=== PATIENT | female | born 1990 | race Asian ===

== ENCOUNTER 2016-10-26 01:21 | Emergency (ER) | payer SELFPAY ==
[~2016-10-26] VITALS: Ht 154.9 cm; Wt 52.2 kg
[2016-10-26 01:33] VITALS: BP_SYST 106
[2016-10-26 01:51] LABS: BILIRUBIN,URINE NEGATIVE (NEGATIVE); BLOOD, URINE NEGATIVE (NEGATIVE); CLARITY/URINE CLEAR (CLEAR); COLOR,URINE YELLOW (YELLOW); GLUCOSE,URINE NEGATIVE (NEGATIVE); KETONES,URINE NEGATIVE (NEGATIVE); LEUKOCYTE ESTERASE ,URINE NEGATIVE (NEGATIVE); NITRITE, URINE NEGATIVE (NEGATIVE); PROTEIN URINE NEGATIVE (NEGATIVE); UROBILINOGEN,URINE 0.2 (0.2-1.0)
[2016-10-26] MEDS ORDERED: DIPHENHYDRAMINE INJ 50 MG/ML VIAL IVP ONE ×3 (02:00→04:15)
[2016-10-26] MEDS ORDERED: MORPHINE 4 MG/ML INJ. SYRINGE IVP ONE ×2 (02:00→03:15)
[2016-10-26] MEDS ORDERED: ONDANSETRON HCL 4 MG/2 ML VIAL IVP ONE (02:00)
[2016-10-26 02:15] LABS: BASOPHILS % (AUTO) 0.5 % (0.0-2.0); EOSINOPHILS # (AUTO) 0.4 K/uL (0.0-0.4); EOSINOPHILS % (AUTO) 5.3 % (0.0-4.0); HEMATOCRIT 38.2 % (36-48); LYMPHOCYTES # (AUTO) 2.6 K/uL (1.0-5.5); LYMPHOCYTES % (AUTO) 32.4 % (20.5-51.5); MEAN CORPUSCULAR HEMOGLOBIN 29 pg (27-31); MEAN CORPUSCULAR HGB CONC 34 % (32-36); MEAN CORPUSCULAR VOLUME 86 fL (79.0-98.0); MONOCYTES # (AUTO) 0.5 K/uL (0.0-1.0); MONOCYTES % (AUTO) 5.8 % (1.7-9.3); NEUTROPHILS # (AUTO) 4.5 K/uL (1.8-7.7); PLATELET COUNT (AUTO) 305 K/uL (130-430); RED BLOOD CELL COUNT(AUTO) 4.44 MIL/uL (4.2-6.2); RED CELL DISTRIBUTION WIDTH 11.5 % (9.0-15.0)
[2016-10-26] MEDS ORDERED: NACL 0.9% 1,000 ML IV ONE (02:15)
[2016-10-26 02:23] LABS: CALCIUM 8.6 mg/dL (8.4-11.0); CREATININE 1.06 mg/dL (0.55-1.30); POTASSIUM 3.6 mmol/L (3.5-5.1)
[2016-10-26] MEDS ORDERED: IOHEXOL 100 ML IV ONE (02:26)
[2016-10-26 02:27] LABS: TOTAL BILIRUBIN 0.3 mg/dL (0.0-1.0)
[2016-10-26 04:20] VITALS: BP_SYST 110
[2016-10-27] MEDS ORDERED: HYDR-1189 PO (23:56)
== END 2016-10-26 04:20 | disposition home or self-care (01) ==
LOC: SED 01:21
DX: R10.31 Right lower quadrant pain (principal); R11.2 Nausea with vomiting, unspecified; Z90.49 Acquired absence of other specified parts of digestive tract; Z90.89 Acquired absence of other organs; V89.2XXA Person injured in unspecified motor-vehicle accident, traffic, initial encounter; Y93.89 Activity, other specified; Y92.89 Other specified places as the place of occurrence of the external cause; Y99.8 Other external cause status
CPT/HCPCS: 36415; 74177; 80053; 81003; 81025; 83690; 85025; 96361; 96374; 96375; 96376; 99285; J1200; J2270; J2405; J7030; Q9967

== ENCOUNTER 2016-11-05 21:37 | Inpatient (IN) | payer SELFPAY ==
[~2016-11-05] VITALS: Ht 154.9 cm; Wt 49.9 kg
[2016-11-05 21:37] VITALS: BP_SYST 120
[~2016-11-05 21:37] MED LIST: HYDR-1189 PO
[2016-11-05 22:25] LABS: BILIRUBIN,URINE NEGATIVE (NEGATIVE); BLOOD, URINE NEGATIVE (NEGATIVE); CLARITY/URINE CLOUDY (CLEAR); COLOR,URINE YELLOW (YELLOW); GLUCOSE,URINE NEGATIVE (NEGATIVE); KETONES,URINE TRACE (NEGATIVE); LEUKOCYTE ESTERASE ,URINE NEGATIVE (NEGATIVE); NITRITE, URINE POSITIVE (NEGATIVE); PROTEIN URINE TRACE (NEGATIVE); UROBILINOGEN,URINE 0.2 (0.2-1.0)
[2016-11-05 22:33] LABS: BACTERIA,URINE MANY /HPF (None Seen); MUCUS,URINE None Seen /LPF (None Seen); RBC,URINE 0-3 /HPF (0-3)
[2016-11-05 23:10] LABS: BASOPHILS % (AUTO) 0.4 % (0.0-2.0); EOSINOPHILS # (AUTO) 0.4 K/uL (0.0-0.4); HEMATOCRIT 40.3 % (36-48); HEMOGLOBIN 13.3 g/dL (12.0-16.0); LYMPHOCYTES # (AUTO) 2.2 K/uL (1.0-5.5); LYMPHOCYTES % (AUTO) 30.8 % (20.5-51.5); MEAN CORPUSCULAR HEMOGLOBIN 29 pg (27-31); MEAN CORPUSCULAR HGB CONC 33 % (32-36); MEAN CORPUSCULAR VOLUME 87 fL (79.0-98.0); MONOCYTES # (AUTO) 0.3 K/uL (0.0-1.0); MONOCYTES % (AUTO) 4.8 % (1.7-9.3); NEUTROPHILS # (AUTO) 4.1 K/uL (1.8-7.7); PLATELET COUNT (AUTO) 296 K/uL (130-430); RED BLOOD CELL COUNT(AUTO) 4.62 MIL/uL (4.2-6.2); RED CELL DISTRIBUTION WIDTH 11.9 % (9.0-15.0)
[2016-11-05 23:14] LABS: CALCIUM 9.3 mg/dL (8.4-11.0); CREATININE 0.72 mg/dL (0.55-1.30); POTASSIUM 4.2 mmol/L (3.5-5.1)
[2016-11-05 23:19] LABS: ALBUMIN 4.3 g/dL (3.4-4.8); TOTAL BILIRUBIN 0.2 mg/dL (0.0-1.0); TOTAL PROTEIN, SERUM 8.5 g/dL (6.4-8.3)
[2016-11-05] MEDS ORDERED: ONDANSETRON 4 MG ODT TAB PO ONE (23:45)
[2016-11-06] MEDS ORDERED: MORPHINE 4 MG/ML INJ. SYRINGE IVP ONE (01:15)
[2016-11-06] MEDS ORDERED: DIPHENHYDRAMINE INJ 50 MG/ML VIAL IVP ONE ×2 (01:15→09:15)
[2016-11-06] MEDS ORDERED: MORPHINE SULFATE 10 MG/ML VIAL ONE (01:29)
[2016-11-06] MEDS ORDERED: MORPHINE SULFATE 10 MG/ML VIAL IVP ONE (01:30)
[2016-11-06] MEDS ORDERED: IOHEXOL 100 ML IV ONE (04:20)
[2016-11-06] MEDS ORDERED: NACL 0.9% 1,000 ML IV SCH (06:00)
[2016-11-06] MEDS ORDERED: MORPHINE 2 MG/ML INJ. SYRINGE IVP PRN (06:00)
[2016-11-06] MEDS ORDERED: ACETAMINOPHEN 325 MG TABLET PO PRN (06:00)
[2016-11-06] MEDS ORDERED: ONDANSETRON HCL 4 MG/2 ML VIAL IVP PRN (06:00)
[2016-11-06] MEDS ORDERED: cefTRIAXone 1 GM in D5W 50 ML IV SCH (06:30)
[2016-11-06 06:36] VITALS: BP_SYST 118
[2016-11-06] MEDS ORDERED: DIPHENHYDRAMINE INJ 50 MG/ML VIAL IVP PRN (07:15)
[2016-11-06] MEDS ORDERED: cefTRIAXone 1 GM IVPB PREMIX 50 ML IV ONE (07:19)
[2016-11-06] MEDS: HYDROmorphone 1 MG INJ. 1 MG/ML AMPUL IVP PRN ×2 (07:40→11:49)
[2016-11-06 08:00] VITALS: BP_SYST 111
[2016-11-06 08:34] LABS: PHOSPHORUS 2.7 mg/dL (2.7-4.5); THYROID STIMULATING HORMONE 4.04 uIu/mL (0.34-4.82)
[2016-11-06] MEDS ORDERED: DOCUSATE SODIUM 100 MG CAPSULE PO SCH (09:00)
[2016-11-06 12:25] VITALS: BP_SYST 111
[2016-11-07 06:13] LABS: T4 (THYROXINE) 9.9 ug/dL (4.5-12.0)
[2016-11-07 12:06] LABS: HEMOGLOBIN A1C 5.3 % (4.8-5.6)
== END 2016-11-06 12:45 | disposition left against medical advice (07) | DRG 392 ==
LOC: SED 21:37 → STU 11-06 06:00 → SMU 11-06 10:40
PROVIDERS: ADMIT Family Medicine; ATTEND Family Medicine
DX: K52.9 Noninfective gastroenteritis and colitis, unspecified (principal); N83.209 Unspecified ovarian cyst, unspecified side; N30.90 Cystitis, unspecified without hematuria; Z53.21 Procedure and treatment not carried out due to patient leaving prior to being seen by health care provider
CPT/HCPCS: 36415; 76830-TC; 76856-TC; 76857; 80053; 81000-TC; 82150-TC; 83036; 83690-TC; 83735-TC; 83880; 84100-TC; 84436; 84439; 84443-TC; 84479; 85025; 87086; J0696; J1170; J1200; J2270; J7030; J7060; Q0162; Q9967

== ENCOUNTER 2021-08-03 21:43 | Emergency (ER) | payer MEDICAID ==
[~2021-08-03] VITALS: Ht 154.9 cm; Wt 59.0 kg
[~2021-08-03 21:43] MED LIST changes: -HYDR-1189 PO; +HYDR-3919 PO
[2021-08-03 21:50] VITALS: BP_SYST 132
[2021-08-03] MEDS ORDERED: IBUP-1971 PO ×2 (22:53→23:46)
[2021-08-03] MEDS ORDERED: CEPH-548 PO ×2 (22:53→23:46)
[2021-08-03] MEDS ORDERED: cephALEXin 500 MG CAPSULE PO ONE (23:00)
[2021-08-03] MEDS ORDERED: IBUPROFEN 800 MG TABLET PO ONE (23:00)
[2021-08-04 00:10] VITALS: BP_SYST 113
== END 2021-08-04 00:11 | disposition home or self-care (01) ==
LOC: SED 21:43
DX: N39.0 Urinary tract infection, site not specified (principal); R10.30 Lower abdominal pain, unspecified; Z79.899 Other long term (current) drug therapy
CPT/HCPCS: 74018; 81002; 81025; 99283